=== PATIENT | male | born 1955 | race Caucasian/White ===

== ENCOUNTER 2020-09-29 16:30 | Outpatient (REF) | payer BC, SELFPAY ==
--- NOTE | 2020-09-29 16:58 | XR_ITS ---
EXAMINATION: XR SHOULDER, RIGHT CLINICAL INFORMATION: Unspecified disorder of synovium and tendon right shoulder COMPARISON: None TECHNIQUE: AP external rotation, Grashey, scapular Y, and axillary views of the right shoulder. FINDINGS: Bone alignment is normal. No fracture or dislocation is seen. There is arthritis at the acromioclavicular with joint space narrowing, osteophyte formation and subchondral cystic change. There is periarticular soft tissue calcification adjacent to the right acromioclavicular joint. It is uncertain whether this is related to previous trauma to the AC joint/dystrophic calcification or could represent evidence of an inflammatory AC joint arthritis. Clinical correlation is recommended. There is faint soft tissue calcification adjacent to the right greater trochanter questionable for calcific tendinitis or bursitis. 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 Clinical correlation recommended. Faint soft tissue calcification adjacent to the greater tuberosity suggestive of calcific tendinitis or bursitis.
== END 2020-09-29 16:31 | disposition home or self-care (01) ==
LOC: HO.XRAY 16:30
PROVIDERS: PCP Internal Medicine; Visit Provider Physician Assistant
DX: M67.911 Unspecified disorder of synovium and tendon, right shoulder (principal)
CPT/HCPCS: 73030

== ENCOUNTER → 2020-11-16 07:27 | Outpatient (BNVA) | payer BC, SELFPAY | PROVIDERS: PCP Internal Medicine; Visit Provider Physician Assistant ==

== ENCOUNTER → 2021-04-30 10:22 | Outpatient (BNVA) | payer SELFPAY | PROVIDERS: Visit Provider Internal Medicine | DX: Z02.79 Encounter for issue of other medical certificate (principal) ==

== ENCOUNTER 2021-09-06 09:34 | Outpatient (REF) | payer BC, SELFPAY ==
[2021-09-06 10:04] LABS: Hematocrit 47.1 % (42.0-52.0); Hemoglobin 15.2 g/dl (14.0-18.0); Mean Corpuscular HGB Conc 32.3 g/dl (31.0-36.0); Mean Corpuscular Hemoglobin 30.2 pg (27.0-33.0); Mean Corpuscular Volume 93.6 fL (80.0-98.0); Mean Platelet Volume 9.3 fL (9.4-12.4); Platelet Count 321 X10*3/uL (160-400); Red Blood Count 5.03 X10*6/uL (4.60-5.80); Red Cell Distribution Width 14.6 % (11.0-16.0); White Blood Count 8.9 X10*3/uL (4.8-10.8)
[2021-09-06 10:28] LABS: Alanine Aminotransferase 17 U/L (0-40); Albumin Level 4.5 g/dL (3.5-5.0); Alkaline Phosphatase 68 U/L (39-117); Anion Gap 11 (12-20); Aspartate Amino Transferase 18 U/L (5-37); Bilirubin Total 0.2 mg/dL (0.0-1.0); Blood Urea Nitrogen 17 mg/dL (9-16); Calcium 9.9 mg/dL (8.4-10.2); Carbon Dioxide 30 mmol/L (22-29); Chloride 107 mmol/L (96-108); Cholesterol 289 mg/dL; Estimated Glomerular Filt Rate > 60; Glucose Fasting 109 mg/dL (60-99); HDL Cholesterol 63 mg/dL; LDL Cholesterol Calculated 210 mg/dl; Potassium 4.7 mmol/L (3.3-5.1); Sodium 143 mmol/L (135-145); Total Protein 7.5 g/dL (6.5-8.0); Triglycerides 82 mg/dL
[2021-09-06 10:39] LABS: Estimated Average Glucose 117 mg/dL; Hemoglobin A1c % 5.7 %
[2021-09-06 11:19] LABS: Prostate Specific Antigen Scr 1.03 ng/mL (<0.05-4.0)
== END 2021-09-06 09:35 | disposition home or self-care (01) ==
LOC: HO.LAB 09:34
PROVIDERS: PCP Physician Assistant; Visit Provider Physician Assistant
DX: I10 Essential (primary) hypertension (principal); Z13.220 Encounter for screening for lipoid disorders; Z13.1 Encounter for screening for diabetes mellitus; Z12.5 Encounter for screening for malignant neoplasm of prostate
CPT/HCPCS: 36415; 80053; 80061; 83036; 84153; 85027

== ENCOUNTER 2021-09-06 10:10 | Outpatient (REF) | payer BC, SELFPAY ==
--- NOTE | ~2021-09-06 | CT_ITS ---
EXAMINATION: CT CHEST SCREENING CLINICAL INFORMATION: Smoker, [id number] history. COMPARISON: CT chest 08/07/2019. TECHNIQUE: Multidetector volumetric CT imaging of the chest is performed without contrast using low dose technique. Additional 2D coronal and sagittal reformatted images and axial 3D maximum intensity projection (MIP) images are generated on the CT workstation. This CT examination was performed using dose optimization techniques as appropriate, variously including the following: *Automated exposure control *Adjustment of mA and/or kV according to patient size (this includes techniques or standardized protocols for targeted exams where dose is matched to indication/reason for exam; i.e. extremities or head) *Use of iterative reconstruction technique DLP: 54 mGy-cm FINDINGS: LUNGS: There is 1 mm calcified granuloma left upper lobe axial image 63/6 with left apical pleural thickening. There is a 3 mm nodule left lower lobe lateral basal segment axial image 424/6, a 1 mm calcified granuloma left lower lobe axial image 454/6, a 2 mm nodule left lower lobe adjacent to major fissure axial image 378/6. Few additional subsegmental nodules in the left lower lobe. There are a few tiny subpleural nodules in the right lower lobe similar to previous study. A 1 mm calcified nodule right middle lobe axial image 441/6, 2 mm subpleural tiny nodule right lower lobe axial image 290/6 is stable. There are bilateral posterior basal segment atelectasis. No acute consolidation or mass seen. MEDIASTINUM: No hilar or mediastinal mass or lymph nodes. The central trachea and the bronchi are widely patent. The heart size and the great vessels are normal caliber. There is no pericardial effusion. There is minimal coronary artery calcification seen. The thyroid lobes are symmetrical and normal. PLEURA: There is no pleural effusion. No pleural mass or thickening. AXILLA: No lymphadenopathy. UPPER ABDOMEN: Visualized liver, spleen, pancreas and bilateral adrenal glands are unremarkable. OSSEOUS STRUCTURES: No aggressive lytic or sclerotic process seen. CT/CT lung screening IMPRESSION: Stable scattered pulmonary nodules, 4 mm or less. Stable calcified granulomas measuring 1 mm. No new pulmonary nodules, mass or consolidation. Minimal coronary artery calcifications. ASSESSMENT: Lung-RADS category 2: Benign RECOMMENDATION: Low-dose annual CT chest screening.
== END 2021-09-06 10:11 | disposition home or self-care (01) ==
LOC: HO.CT 10:10
PROVIDERS: PCP Physician Assistant; Visit Provider Physician Assistant Medical
DX: I10 Essential (primary) hypertension (principal); Z13.220 Encounter for screening for lipoid disorders; Z13.1 Encounter for screening for diabetes mellitus; Z12.5 Encounter for screening for malignant neoplasm of prostate; F17.200 Nicotine dependence, unspecified, uncomplicated
CPT/HCPCS: 71271

== ENCOUNTER 2022-11-16 08:36 | Outpatient (REF) | payer BC, SELFPAY ==
[2022-11-16 09:41] LABS: Hematocrit 46.8 % (42.0-52.0); Hemoglobin 15.2 g/dl (14.0-18.0); Mean Corpuscular HGB Conc 32.5 g/dl (31.0-36.0); Mean Corpuscular Hemoglobin 30.1 pg (27.0-33.0); Mean Corpuscular Volume 92.7 fL (80.0-98.0); Mean Platelet Volume 10.3 fL (9.4-12.4); Platelet Count 346 X10*3/uL (160-400); Red Blood Count 5.05 X10*6/uL (4.60-5.80); Red Cell Distribution Width 14.6 % (11.0-16.0); White Blood Count 9.3 X10*3/uL (4.8-10.8)
[2022-11-16 10:22] LABS: Alanine Aminotransferase 21 U/L (0-40); Albumin Level 4.4 g/dL (3.5-5.0); Alkaline Phosphatase 72 U/L (39-117); Anion Gap 12 (12-20); Aspartate Amino Transferase 23 U/L (5-37); Bilirubin Total 0.3 mg/dL (0.0-1.0); Blood Urea Nitrogen 19 mg/dL (9-16); Calcium 9.1 mg/dL (8.4-10.2); Carbon Dioxide 25 mmol/L (22-29); Chloride 108 mmol/L (96-108); Cholesterol 235 mg/dL; Estimated Glomerular Filt Rate > 60; Glucose Fasting 105 mg/dL (60-99); HDL Cholesterol 72 mg/dL; LDL Cholesterol Calculated 151 mg/dl; Potassium 4.8 mmol/L (3.3-5.1); Sodium 140 mmol/L (135-145); Triglycerides 61 mg/dL; Uric Acid 5.3 mg/dL (3.4-7.0)
[2022-11-16 10:40] LABS: TSH reflex Free T4 3.27 uIU/mL (0.32-4.0)
== END 2022-11-16 08:37 | disposition home or self-care (01) ==
LOC: HO.LAB 08:36
PROVIDERS: PCP Physician Assistant; Visit Provider Physician Assistant
DX: M1A.0720 Idiopathic chronic gout, left ankle and foot, without tophus (tophi) (principal); E78.2 Mixed hyperlipidemia
CPT/HCPCS: 36415; 80053; 80061; 84443; 84550; 85027

== ENCOUNTER → 2023-04-27 10:25 | Outpatient (BNVA) | payer SELFPAY | PROVIDERS: PCP Physician Assistant; Visit Provider Physician Assistant Medical | DX: Z02.79 Encounter for issue of other medical certificate (principal) ==

== ENCOUNTER 2023-08-31 15:57 | Outpatient (REF) | payer BC, SELFPAY | END 2023-08-31 15:58 | disposition home or self-care (01) | LOC: HO.CT 15:57 | PROVIDERS: Visit Provider Physician Assistant Medical | DX: Z13.89 Encounter for screening for other disorder (principal) ==

== ENCOUNTER 2023-10-13 09:29 | Outpatient (REF) | payer BC, SELFPAY ==
--- NOTE | ~2023-10-13 | CT_ITS ---
EXAMINATION: CT CHEST SCREENING CLINICAL INFORMATION: Current smoker with 50 pack year history. COMPARISON: 09/06/2021 and 08/07/2019 TECHNIQUE: Multidetector volumetric CT imaging of the chest is performed without contrast using low dose technique. Additional 2D coronal and sagittal reformatted images and axial 3D maximum intensity projection (MIP) images are generated on the CT workstation. This CT examination was performed using dose optimization techniques as appropriate, variously including the following: *Automated exposure control *Adjustment of mA and/or kV according to patient size (this includes techniques or standardized protocols for targeted exams where dose is matched to indication/reason for exam; i.e. extremities or head) *Use of iterative reconstruction technique DLP: 52 mGy-cm FINDINGS: PEDIATRIC PHYSICAL THERAPY ASSISTANT: Aortic calcifications. Clear lungs. LUNGS: Trachea and bronchi are patent. Mild left apical pleural thickening again identified. Mild centrilobular and paraseptal emphysema. Cystic changes right upper lobe. Minor dependent atelectasis. 3 mm LLL nodule is stable, 6:383. Unchanged 5 mm pleural-based RML nodule, 6:412. Scattered micronodules and granulomas. MEDIASTINUM: Unremarkable thyroid. No pathologic lymphadenopathy. Nonenlarged heart. Nonaneurysmal aorta with atherosclerotic calcifications. Nonenlarged pulmonary arteries. CORONARY ARTERY CALCIFICATION: None visualized on this study. PLEURA: There is no pleural effusion. No pleural mass or thickening. AXILLA: No lymphadenopathy. UPPER ABDOMEN: Unremarkable OSSEOUS STRUCTURES: Unremarkable. CT/CT lung screening IMPRESSION: Stable lung nodules. No new or enlarging pulmonary nodules. ASSESSMENT: Lung-RADS category 2: Benign RECOMMENDATION: Routine annual low-dose CT screening in 12 months.
== END 2023-10-13 09:30 | disposition home or self-care (01) ==
LOC: HO.CT 09:29
PROVIDERS: PCP Physician Assistant; Visit Provider Nurse Practitioner Family
DX: Z12.2 Encounter for screening for malignant neoplasm of respiratory organs (principal); F17.210 Nicotine dependence, cigarettes, uncomplicated
CPT/HCPCS: 71271

== ENCOUNTER 2025-03-11 12:23 | Outpatient (AMB) | payer BC, SELFPAY ==
--- NOTE | 2025-03-11 12:57 | AM.OFFWIN_ITS ---
Intake Vital Signs 03/11/25 12:58 Height 5 ft 11 in Weight 158 lb BMI 22.0 BP 112/60 Blood Pressure Location Lt brachial Position Sitting Pulse 78 Pulse Source Pulse Oximeter Temp 97.5 F Temp Source Oral Pulse Oximetry (%) 97 Oxygen Delivery Method Room Air Intake Visit Reasons: EP Dizzy when looking up Intake Note: presents with dizziness when sitting/standing and mild headache 5 days Patient Tobacco Use Status: Current everyday Tobacco user Allergies moderna Allergy (Severe, Uncoded 03/11/25 13:01) throat closing and hives Do you need a note to return to daycare/school/sports/work: No HPI HPI Comments History of Present Illness Details History of Present Illness - The patient is a 69-year-old male pres enting with dizziness. - He states that he has been experiencin g dizziness when he moves his head, particularly when he lifts his head. - The dizziness began last and is primarily triggered by head movements rather than positional changes. - He does not describe that the room is spinning but he feels dizzy and needs to grab onto something until it resolves in a few seconds. - He has no associated chest pain, SOB o r nausea when it occurs. - The patient denies any cold symptoms, ear pain, chest pain, or shortness of breath. - There have been no changes in medicati on, vitamins, or diet. - The dizziness started after swimming o n vacation, requiring stabilization upon waking. - The patient has not experienced syncop e or vision changes. - The patient has a history of carotid a rtery surgery in 2013, during which a minor stroke occurred. Physical Exam General: Cooperative, healthy appearing, comfortable, no acute distress and well developed Orientation: Patient oriented x3 Limitations: No limitations Head: Normal to inspection Ears: Hearing grossly normal bilaterally. Cerumen impaction noted bilaterally. TMs not visualized bilaterally. Nose: Normal external nose present Face and sinus: Normal facial exam Eyes: Appearance normal, both eyes and all related structures. No nystagmus noted. EOMI. PERRLA. Neck: Normal visual inspection and Yes full ROM. No carotid bruits noted. Respiratory: Normal respiratory effort and able to speak in complete sentences. Clear to auscultation bilaterally Cardiovascular: Regular rate and rhythm. Normal S1 and S2 Neuro: Patient oriented x3. CN 2-12 intact. Patient was informed and verbally consented to the use of an ambient scribe for clinic note documentation during this visit. [facility] Medical History (Updated 09/02/24 @ 14:28 by Belkys Finn PA-C) HLD (hyperlipidemia) Nicotine dependence, cigarettes, uncomplicated PVD (peripheral vascular disease) Glaucoma Surgical History H/O carotid endarterectomy Family History Father Hypertension Diabetes Mother Breast cancer Brother Myocardial infarction Daughter In good health Daughter In good health Social History (Updated 03/21/22 @ 12:20 by Donta Segundo PA-C) Household Members: Spouse Alcohol intake: never Patient Tobacco Use Status: Current everyday Tobacco user Cigarette Packs Per Day: 1 Cigarettes Per Day: 10.0 Current occupational status: employed Current occupation: Construction Cognitive needs: No Hearing needs: No Vision needs: Yes Review of Systems Const All systems reviewed & are unremarkable except as noted in HPI and below Physical Exam Vital Signs: Last Vital Signs Temp 97.5 F 03/11/25 12:58 Pulse 78 03/11/25 12:58 BP 112/60 03/11/25 12:58 Pulse Ox 97 03/11/25 12:58 Oxygen Delivery Method Room Air 03/11/25 12:58 BMI result Body Mass Index 22.0 Office Procedures Cerumen Removal From which ear canal was the cerumen removed: bilateral Removal: irrigation Notes: patient tolerated procedure well, no complications and ear canal clear 73606-Fca Irrigation/Lavage Assessment & Plan Assessment & Plan (1) Postural dizziness: Code(s): R42 - Dizziness and giddiness Plan Most likely cerumen impaction vs verigo vs Meniere's Plan - Recommend ear irrigation to remove impacted cerumen, which is likely contributing to dizziness. - Monitor symptoms post-irrigation to assess improvement in dizziness. - Patient tolerated the procedure well and felt much better - Advised to not use q-tips in the ears - can use OTC Debrox drops - follow up with PCP Orders: Orders AMB Cerumen Removal Today H61.23 - Impacted cerumen, bilateral Coding Level of Care Code Est Pt Level 3 (48861) Diagnoses Postural dizziness R42 CPT Codes Office Procedure - CPT: 84386-Dmx Irrigation/Lavage ([id number])
[2025-03-11 12:58] VITALS: BP 112/60; PULSE 78; TEMP 36.4; O2SAT 97; BMI 22.0
== END 2025-03-11 14:39 | disposition home or self-care (01) ==
PROVIDERS: PCP Physician Assistant; Visit Provider Physician Assistant Medical
DX: R42 Dizziness and giddiness (principal); H61.23 Impacted cerumen, bilateral

== ENCOUNTER → 2025-03-11 12:23 | Outpatient (BNVA) | payer BC, SELFPAY | PROVIDERS: PCP Physician Assistant; Visit Provider Physician Assistant Medical | DX: R42 Dizziness and giddiness (principal); H61.23 Impacted cerumen, bilateral | CPT/HCPCS: 69209 ==

== ENCOUNTER 2025-03-20 14:23 | Outpatient (AMB) | payer BC, SELFPAY ==
[2025-03-20 15:10] VITALS: BP 106/60; PULSE 67; TEMP 36.7; O2SAT 98; BMI 22.0
--- NOTE | 2025-03-20 15:10 | AM.OFFWIN_ITS ---
Intake Vital Signs 03/20/25 15:10 Height 5 ft 11 in Weight 158 lb BMI 22.0 BP 106/60 Blood Pressure Location Rt brachial Position Sitting Pulse 67 Pulse Source Pulse Oximeter Temp 98.0 F Temp Source Oral Pulse Oximetry (%) 98 Oxygen Delivery Method Room Air Intake Visit Reasons: EP still experiencing dizziness Intake Note: presents with unresolved diziness Patient Tobacco Use Status: Current everyday Tobacco user Allergies moderna Allergy (Severe, Uncoded 03/11/25 13:01) throat closing and hives Do you need a note to return to daycare/school/sports/work: No HPI HPI Comments History of Present Illness Details 69 y/o Male patient who presents to the walk in clinic with c/o Dizziness. He was recently seen here at the walk in clinic with similar concern. He had his Both Ears Irrigated due to Cerumen Impaction. Reports his symptoms did not resolve. Reports feeling Dizzy every-time he looks up to the ceiling. Denies nausea or vomiting. [facility] Medical History (Updated 03/20/25 @ 15:42 by Emily Tavares NP) Vertigo HLD (hyperlipidemia) Nicotine dependence, cigarettes, uncomplicated PVD (peripheral vascular disease) Glaucoma Surgical History H/O carotid endarterectomy Family History Father Hypertension Diabetes Mother Breast cancer Brother Myocardial infarction Daughter In good health Daughter In good health Social History (Updated 03/21/22 @ 12:20 by Donta Segundo PA-C) Household Members: Spouse Alcohol intake: never Patient Tobacco Use Status: Current everyday Tobacco user Cigarette Packs Per Day: 1 Cigarettes Per Day: 10.0 Current occupational status: employed Current occupation: Construction Cognitive needs: No Hearing needs: No Vision needs: Yes Review of Systems Const All systems reviewed & are unremarkable except as noted in HPI and below Physical Exam Vital Signs: Last Vital Signs Temp 98.0 F 03/20/25 15:10 Pulse 67 03/20/25 15:10 BP 106/60 03/20/25 15:10 Pulse Ox 98 03/20/25 15:10 Oxygen Delivery Method Room Air 03/20/25 15:10 BMI result Body Mass Index 22.0 Const General: no acute distress Nutritional Appearance: thin Orientation/consciousness: patient oriented x3 HEENT Head: Yes normocephalic Ears: external ears normal and TM abnormal with fluid behind the TM bilateral General nose exam: Normal external nose present Face and sinus: Yes sinuses nontender Mouth: moist mucous membranes Throat: Yes uvula midline Resp Effort & Inspection: normal respiratory effort Cardio Heart sounds: S1 normal heart sound present and S2 normal heart sound present Neuro General: patient oriented x3 Assessment & Plan Assessment & Plan (1) Vertigo: Code(s): R42 - Dizziness and giddiness Plan: Ordered Scopolamine Patch. Advised to f/u with PCP for pOssible Vestibular therapy. Medications: New scopolamine base 1 patch transdermal Q3D 10 ea 1RF R42 - Dizziness and giddiness Coding Level of Care Code Est Pt Level 4 (48144) Diagnoses Vertigo R42 Time Spent (min) 20
== END 2025-03-20 16:10 | disposition home or self-care (01) ==
PROVIDERS: PCP Physician Assistant; Visit Provider Nurse Practitioner Family
DX: R42 Dizziness and giddiness (principal)

== ENCOUNTER 2025-05-14 15:02 | Outpatient (AMB) | payer BC, SELFPAY ==
--- NOTE | 2025-05-14 15:15 | MHC.PC.OV ---
Vital Signs 05/14/25 15:16 Height 5 ft 11 in Weight 160 lb 2 oz BMI 22.3 BP 108/62 Blood Pressure Location Lt brachial Position Sitting Respiration 18 Pulse 67 Pulse Source Pulse Oximeter Temp 97.3 F Temp Source Temporal Artery Scan Pulse Oximetry (%) 93 Oxygen Delivery Method Room Air Intake Visit Reasons: dizzy Dyer And Washer Required: No Accompanied by: Self / Same As Patient Allergies moderna Allergy (Severe, Uncoded 05/14/25 15:57) throat closing and hives Medication List - Last Reconciled 05/14/25 by INES Rossi No Known Home Meds Tobacco use date assessed: 05/14/25 Fall risk assessment: No Falls in past year Last assessed Fall Risk: 05/14/25 Dental Screening Dental Screen Date: 05/14/25 Did you have a dental visit in the last 12 months?: Yes Did you have a dental problem in the last 6 months where you did not have access to dental care?: No Was dental information given to patient?: Patient has dentist HPI dizzy HPI Details The patient is a 69-year-old male presenting with dizziness and preventative care screenings. The patient experienced dizziness, which he managed by performing maneuvers for Benign Paroxysmal Positional Vertigo (BPPV) learned from online resources. He successfully alleviated his symptoms after several attempts, without requiring physical therapy intervention. 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 For preventative care, the patient has never had a prostate exam and expressed concern due to increased nocturnal urination, agreeing to a PSA test for prostate health screening. The patient also agreed to a referral for a colonoscopy, having never undergone the procedure before. [facility] Medical History Vertigo HLD (hyperlipidemia) Nicotine dependence, cigarettes, uncomplicated PVD (peripheral vascular disease) Glaucoma Surgical History H/O carotid endarterectomy Family History Father Hypertension Diabetes Mother Breast cancer Brother Myocardial infarction Daughter In good health Daughter In good health Social History Household Members: Spouse Alcohol intake: never Patient Tobacco Use Status: Current everyday Tobacco user Cigarette Packs Per Day: 1 Cigarettes Per Day: 10.0 Current occupational status: employed Current occupation: Construction Cognitive needs: No Hearing needs: No Vision needs: Yes Questionnaire PHQ-9 Over the last 2 weeks, how often have you been bothered by any of the following problems? 1. Little interest or pleasure in doing things: more than half the days 2. Feeling down, depressed, or hopeless: not at all 3. Trouble falling or staying asleep, or sleeping too much: not at all 4. Feeling tired or having little energy: not at all 5. Poor appetite or overeating: not at all 6. Feeling bad about yourself - or that you are a failure or have let yourself or your family down: not at all 7. Trouble concentrating on things, such as reading the newspaper or watching television: not at all 8. Moving or speaking so slowly that other people could have noticed. Or the opposite - being so fidgety or restless that you have been moving around a lot more than usual: not at all 9. Thoughts that you would be better off or of hurting yourself in some way: not at all Total score: 2 Source: Developed by Drs. Jorge Luis Matthews, Shell Plaza, Ha Callahan and colleagues, with an educational vielka from [employer] Thrive Questionnaire Date Thrive assessed: 05/14/25 I am a: Patient What is your living situation today?: I have a steady place to live Within the past 12 months, did the food you bought not last and you didn't have the money to get more?: Never true Within the past 12 months, did you worry whether your food would run out before you got money to buy more?: Never true Do you have trouble paying for medicines?: No Do you have trouble getting transportation to medical appointments?: No Do you have trouble paying your heating and electricity bill?: No Do you have trouble taking care of your child, family member or friend?: No Do you have trouble with day-to-day activities such as bathing, preparing meals, shopping, managing finances, etc.?: No Are you currently unemployed and looking for a job?: No Are you interested in more education?: No Please select the resources that you would like help with: None Currently or been in a relationship where the following occur: No concerns reported THRIVE Score: 0 AUDIT C Alcohol Use Questionnaire (AUDIT-C) 1. How often do you have a drink containing alcohol?: Never Total Score: 0 KAVYA-7 AMB Questionnaire KAVYA-7 Date KAVYA - 7 assessed: 05/14/25 Feeling nervous, anxious, or on edge: 0 = Not at all Not being able to stop or control worryin = Not at all Worrying too much about different things: 0 = Not at all Trouble relaxin = Not at all Being so restless that it is hard to sit still: 0 = Not at all Becoming easily annoyed or irritable: 0 = Not at all Feeling afraid as if something awful might happen: 0 = Not at all Total KAVYA-7 score (0-4 normal; 5-9 mild; 10-14 moderate; 15-21 severe): 0 Source: Developed by Drs. Jorge Luis Matthews, Shell Plaza, Ha Callahan and colleagues, with an educational vielka from [employer] Review of Systems Const Denies body aches, Denies chills, Denies fever(s), Denies headache(s) and Denies poor appetite Eyes Reports no additional complaints ENT Denies dysphagia, Denies dizziness, Denies headache(s) and Denies odynophagia Card Denies chest pain, Denies syncope, Denies edema, Denies irregular heart rhythm, Denies lightheadedness and Denies dyspnea Resp Denies cough and Denies dyspnea GI Denies abdominal pain, Denies constipation, Denies dysphagia, Denies diarrhea, Denies nausea, Denies odynophagia and Denies vomiting Reports no additional complaints Musc Reports no additional complaints and Denies abnormal gait Skin/Breast Reports system reviewed and no additional complaints, except as documented Neuro Denies abnormal gait, Denies dizziness, Denies syncope and Denies headache(s) Psych Reports no additional complaints Physical exam (Primary Care) Vital Signs: Last Vital Signs Temp 97.3 F 05/14/25 15:16 Pulse 67 05/14/25 15:16 Resp 18 05/14/25 15:16 BP 108/62 05/14/25 15:16 Pulse Ox 93 05/14/25 15:16 Oxygen Delivery Method Room Air 05/14/25 15:16 BMI result Body Mass Index 22.3 Tobacco/Smoking Status: Tobacco use Status Tobacco use date assessed 05/14/25 05/14/25 15:23 Patient Tobacco Use Status Current everyday Tobacco 05/14/25 15:23 PHQ-9: PHQ-9 Score PHQ-9: Total score 2 05/14/25 15:23 Thrive Assessment: Date of Thrive Assessment Date Thrive assessed 05/14/25 05/14/25 15:23 Currently or been in a relationship where the following occur: No concerns reported Const General: cooperative, healthy appearing, comfortable and no acute distress Orientation/consciousness: patient oriented x3 HENMT Head: Yes normocephalic Ears: TM's normal bilaterally General nose exam: Normal nasal mucous membranes and turbinates present Eyes General: appearance normal, both eyes and all related structures Conjunctivae: conjunctivae normal Neck Neck: Yes full ROM and Yes no lymphadenopathy Resp Effort & Inspection: normal respiratory effort Auscultation: clear to auscultation bilaterally, no crackles, no rales, no rhonchi and no wheezes Cardio Rate: regular rate Rhythm: regular rhythm Heart sounds: S1 normal heart sound present and S2 normal heart sound present GI Palpation (GI): Soft to palpation and nontender Auscultation: normal bowel sounds Skin General skin exam: no rashes or lesions noted Neuro General: patient oriented x3 Gait exam (Neuro): Normal gait present Extrem General: Yes normal to inspection, Yes full ROM and No edema Psych Affect: normal affect Attitude: cooperative Insight: Good insight present (Psych) Judgement: Good judgement present (Psych) Coding Level of Care Code Est Pt Level 3 (39756) Diagnoses Vertigo R42 Mixed hyperlipidemia E78.2 Hyperlipidemia type: mixed hyperlipidemia Colon cancer screening Z12.11 Time Spent (min) 36 Assessment & Plan Assessment & Plan (1) Vertigo: Code(s): R42 - Dizziness and giddiness Category: Medical (2) HLD (hyperlipidemia): Code(s): E78.5 - Hyperlipidemia, unspecified Category: Medical Qualifiers: Hyperlipidemia type: mixed hyperlipidemia Qualified Code(s): E78.2 - Mixed hyperlipidemia (3) Colon cancer screening: Comment: Index screening colonoscopy, no GI complaints, in no family history GI cancers Code(s): Z12.11 - Encounter for screening for malignant neoplasm of colon Category: Medical Plan Plan Patient was informed and verbally consented to the use of an ambient scribe for clinic note documentation during this visit. 1. Benign Paroxysmal Positional Vertigo (Bppv) The patient managed his BPPV symptoms using self-administered maneuvers learned online, which successfully alleviated his dizziness without the need for physical therapy. 2. Neck Pain The neck pain, attributed to prolonged overhead work, has resolved without further intervention. 3. Preventative Care: Prostate Cancer Screening The patient agreed to undergo a PSA test for prostate cancer screening due to increased nocturnal urination. 4. Preventative Care: Colon Cancer Screening A referral for a colonoscopy was made as the patient has never undergone this screening procedure. Orders: Orders UA CC w/rflx Micro + Cult Today E78.2 - Mixed hyperlipidemia, R42 - Dizziness and giddiness TSH reflex Free T4 Today E78.2 - Mixed hyperlipidemia, R42 - Dizziness and giddiness PSA,Total (Free>4and<10) Today E78.2 - Mixed hyperlipidemia, R42 - Dizziness and giddiness Complete Blood Count Auto Diff Today E78.2 - Mixed hyperlipidemia, R42 - Dizziness and giddiness Comprehensive [place]. Panel Fast Today E78.2 - Mixed hyperlipidemia, R42 - Dizziness and giddiness Lipid Panel Today E78.2 - Mixed hyperlipidemia, R42 - Dizziness and giddiness Vitamin D 25-OH Total Today E78.2 - Mixed hyperlipidemia, R42 - Dizziness and giddiness Referrals Gastroenterology Referral Z12.11 - Encounter for screening for malignant neoplasm of colon
[2025-05-14 15:16] VITALS: BP 108/62; PULSE 67; RESP 18; TEMP 36.3; O2SAT 93; BMI 22.3
== END 2025-05-14 16:17 | disposition home or self-care (01) ==
LOC: HO.HMCH 15:03
PROVIDERS: PCP Physician Assistant
DX: R42 Dizziness and giddiness (principal); E78.2 Mixed hyperlipidemia; Z12.11 Encounter for screening for malignant neoplasm of colon

== ENCOUNTER → 2025-06-12 07:56 | Outpatient (BNVA) | payer SELFPAY | PROVIDERS: PCP Physician Assistant; Visit Provider Physician Assistant Medical | DX: Z02.79 Encounter for issue of other medical certificate (principal) ==

== ENCOUNTER 2025-06-12 09:14 | Outpatient (REF) | payer BC, SELFPAY ==
[2025-06-12 09:38] LABS: MANUAL DIFF FLAG NO
[2025-06-12 10:14] LABS: Hematocrit 45.5 % (42.0-52.0); Hemoglobin 15.3 g/dl (14.0-18.0); Imm Gran Abs Auto 0.04 X10*3/uL (0.00-0.03); Imm Gran Pct Auto 0.4 % (0.0-0.4); Lymphocytes Absolute Auto 1.8 X10*3/uL (1.2-4.9); Mean Corpuscular HGB Conc 33.6 g/dl (31.0-36.0); Mean Corpuscular Hemoglobin 31.0 pg (27.0-33.0); Mean Corpuscular Volume 92.1 fL (80.0-98.0); NRBC Abs Auto 0.000 X10*3/uL (0.0-0.012); NRBC Pct Auto 0.0 /100WBC (0.0-0.2); Platelet Count 333 X10*3/uL (160-400); Red Blood Count 4.94 X10*6/uL (4.60-5.80); White Blood Count 10.3 X10*3/uL (4.8-10.8)
[2025-06-12 10:48] LABS: Appearance Urine Clear; Glucose Urine UA Negative (Negative); PH 5.5 (5.0-9.0); Specific Gravity - Urine 1.020 (1.005-1.025); UMIC TRIGGER UACC YES
[2025-06-12 10:53] LABS: Alanine Aminotransferase 16 U/L (0-40); Albumin Level 4.5 g/dL (3.5-5.0); Alkaline Phosphatase 72 U/L (39-117); Anion Gap 10 (12-20); Aspartate Amino Transferase 24 U/L (5-37); Blood Urea Nitrogen 17 mg/dL (9-16); Calcium 9.4 mg/dL (8.4-10.2); Carbon Dioxide 31 mmol/L (22-29); Chloride 107 mmol/L (96-108); Cholesterol 262 mg/dL (<200); Estimated Glomerular Filt Rate > 60; HDL Cholesterol 68 mg/dL (>40); Potassium 4.7 mmol/L (3.3-5.1); Sodium 143 mmol/L (135-145); Total Protein 7.3 g/dL (6.5-8.0); Triglycerides 66 mg/dL (<150)
[2025-06-12 11:04] LABS: PSA,Total (Free>4and<10) 0.67 ng/mL (0.00-4.00)
== END 2025-06-12 09:15 | disposition home or self-care (01) ==
LOC: HO.LAB 09:14
PROVIDERS: PCP Physician Assistant
DX: Z12.5 Encounter for screening for malignant neoplasm of prostate (principal); Z13.21 Encounter for screening for nutritional disorder; R42 Dizziness and giddiness; E78.2 Mixed hyperlipidemia
CPT/HCPCS: 36415; 80053; 80061; 81001; 82306; 84153; 84443; 85025

== ENCOUNTER 2025-08-06 10:58 | Outpatient (AMB) | payer BC, SELFPAY ==
--- NOTE | 2025-08-06 11:09 | A.OFFPC_ITS ---
Vital Signs 08/06/25 11:12 Height 5 ft 11 in Weight 164 lb 8 oz BMI 22.9 BP 122/68 Respiration 16 Pulse 69 Pulse Source Pulse Oximeter Temp 97.5 F Temp Source Temporal Artery Scan Pulse Oximetry (%) 94 Oxygen Delivery Method Room Air Intake Visit Reasons: Annual exam - see comments Child Adolescent Psychiatrist Required: No Accompanied by: Self / Same As Patient Allergies moderna Allergy (Severe, Uncoded 08/06/25 11:18) throat closing and hives Medication List - Last Reconciled 08/06/25 by Donta Segundo PA-C No Known Home Meds Tobacco use date assessed: 08/06/25 Fall risk assessment: No Falls in past year Last assessed Fall Risk: 08/06/25 Dental Screening Dental Screen Date: 08/06/25 Did you have a dental visit in the last 12 months?: Yes Did you have a dental problem in the last 6 months where you did not have access to dental care?: No Was dental information given to patient?: Patient has dentist HPI Annual exam - see comments HPI Details Patient is a 70 year male here today for annual physical.? Patient has a past medical history significant for tobacco use disorder, carotid stenosis status post endarterectomy, tendinopathy of the right shoulder, osteoarthritis of the knees. .. .. Hyperlipidemia: Most recent lipid panel showing very elevated total cholesterol and LDL. Has not been able to tolerate statins in the past though he is willing to try again to help reduce his cardiovascular risk vaccine: Up-to-date with tetanus vaccine, up-to-date with COVID vaccine, needs pneumonia vaccine ( declines today), Needs Shingles though is considering. .. Colonoscopy: Cologuard done in 2021, negative, repeat 3 years (2024) .. Long-time smoker: Still smoking 10 cigs per day. Unfortunately has not been able to continue to reduce his smoking. patient is followed by lung cancer screening program a and continues with annual CT chest screenings ? Laboratory Tests 09/06/21 11/16/22 06/12/25 09:56 08:47 09:37 RBC 4.94 Creatinine 0.93 Fasting Glucose 109 H Hemoglobin A1c % 5.7 Cholesterol 235 262 H LDL Cholesterol, C alc 151 181 H Total PSA 0.67 TSH 1.96 ? PFS Medical History (Updated 08/06/25 @ 11:42 by Donta Segundo PA-C) Vertigo HLD (hyperlipidemia) Nicotine dependence, cigarettes, uncomplicated PVD (peripheral vascular disease) Glaucoma Surgical History History of cataract surgery History of right-sided carotid endarterectomy (~2013) Family History Father Hypertension Diabetes Mother Breast cancer Brother Myocardial infarction Daughter In good health Daughter In good health Social History Household Members: Spouse Housing: House Alcohol intake: never Patient Tobacco Use Status: Current everyday Tobacco user Cigarette Packs Per Day: 1 Cigarettes Per Day: 10.0 e-Cigarette/Vaping Use: Never Used service: No Current occupational status: employed Current occupation: Construction Cognitive needs: No Hearing needs: No Vision needs: Yes (Reading glasses PRN) Questionnaire Thrive Questionnaire Date Thrive assessed: 05/14/25 I am a: Patient What is your living situation today?: I have a steady place to live Within the past 12 months, did the food you bought not last and you didn't have the money to get more?: Never true Within the past 12 months, did you worry whether your food would run out before you got money to buy more?: Never true Do you have trouble paying for medicines?: No Do you have trouble getting transportation to medical appointments?: No Do you have trouble paying your heating and electricity bill?: No Do you have trouble taking care of your child, family member or friend?: No Do you have trouble with day-to-day activities such as bathing, preparing meals, shopping, managing finances, etc.?: No Are you currently unemployed and looking for a job?: No Are you interested in more education?: No Please select the resources that you would like help with: None Currently or been in a relationship where the following occur: No concerns reported and I choose not to answer THRIVE Score: 0 KAVYA-7 AMB Questionnaire KAVYA-7 Date KAVYA - 7 assessed: 05/14/25 Source: Developed by Drs. Jorge Luis Matthews, Shell Plaza, Ha Callahan and colleagues, with an educational vielka from [employer]. Review of Systems Const Denies body aches, Denies chills, Denies excessive sweating, Denies fatigue, Denies fever(s) and Denies headache(s) Eyes Denies blurry vision ENT Denies dysphagia, Denies vertigo, Denies dizziness, Denies headache(s), Denies hearing loss and Denies tinnitus Card Denies chest pain, Denies chest pain with activity, Denies syncope, Denies irregular heart rhythm and Denies dyspnea Resp Denies chest congestion, Denies cough, Denies hemoptysis, Denies dyspnea and Denies wheezing GI Denies abdominal pain, Denies melena, Denies hematochezia, Denies coffee ground emesis, Denies dysphagia, Denies diarrhea, Denies nausea and Denies vomiting Denies difficulty urinating, Denies dysuria, Denies urinary frequency, Denies urinary hesitancy and Denies urinary urgency Musc Denies arthralgias, Denies limited range of motion, Denies muscle cramps and Denies muscle weakness Skin/Breast Denies rash and Denies skin ulcer Neuro Denies Abnormal speech present, Denies confusion, Denies vertigo, Denies dizziness, Denies syncope, Denies headache(s), Denies memory loss and Denies seizure-like activity Psych Denies anxiety, Denies confusion, Denies depression, Denies memory loss, Denies panic attacks and Denies paranoia Endo Denies excessive sweating, Denies fatigue, Denies flushing, Denies polydipsia and Denies polyuria Aller/Immun Denies wheezing Physical exam (Primary Care) Vital Signs: Last Vital Signs Temp 97.5 F 08/06/25 11:12 Pulse 69 08/06/25 11:12 Resp 16 08/06/25 11:12 BP 122/68 08/06/25 11:12 Pulse Ox 94 08/06/25 11:12 Oxygen Delivery Method Room Air 08/06/25 11:12 BMI result Body Mass Index 22.9 Tobacco/Smoking Status: Tobacco use Status Tobacco use date assessed 08/06/25 08/06/25 11:15 Patient Tobacco Use Status Current everyday Tobacco 08/06/25 11:15 e-Cigarette/Vaping Use Never Used 08/06/25 11:15 Are you ready to quit: Yes Tobacco cessation counseling provided: Yes Items discussed: Nicotine replacement Relapse Prevention: discussed the importance of a supportive environment, discussed negative mood or depression after quitting, weight gain after smoking is common and discussed dietary, exercise and/or lifestyle changes Number of minutes spent counselin CPT code: 28324 - 4-10 Minutes Thrive Assessment: Date of Thrive Assessment Date Thrive assessed 05/14/25 08/06/25 11:15 Currently or been in a relationship where the following occur: No concerns reported and I choose not to answer Const General: cooperative, comfortable, no acute distress, alert and awake; No confusion Orientation/consciousness: oriented to person, oriented to place, patient oriented x3 and No confusion HENMT Head: Yes normocephalic Ears: external ears normal and TM's normal bilaterally Face and sinus: No sinus tenderness Mouth: Normal oral and palatal mucosa present and tongue normal Teeth and gingiva: dentition normal and gingiva normal Throat: Yes posterior oropharynx normal, Yes tonsils normal and Yes uvula midline Eyes Conjunctivae: conjunctivae normal Sclerae: sclerae normal Pupils: Equal, round and reactive pupils present EOM: EOMs intact bilaterally Direct Ophthalmoscopy: No no photophobia Neck Neck: Yes no lymphadenopathy, No tender and Yes no JVD Thyroid: Thyroid normal Carotids: no bruits Chest Chest palpation & inspection: no tenderness Resp Effort & Inspection: normal respiratory effort, no audible wheezes, not labored and no stridor Auscultation: no crackles, no rales, no rhonchi and no wheezes Cardio Jugular venous distension: no JVD Rate: regular rate, not bradycardic and not tachycardic Rhythm: regular rhythm Bruits: no carotid bruits Peripheral pulses: Peripheral pulses 2+ throughout GI Inspection: Yes normal to inspection, No abdominal wall ecchymosis and No visible herniation Palpation (GI): Soft to palpation, nontender, no guarding, not rigid and No hepatosplenomegaly present Auscultation: normoactive bowel sounds General: Yes no CVA tenderness Back/Spine/Pelvis Back: no CVA tenderness and No back tenderness Cervical Spine: cervical ROM normal Thoracic/Lumbar Spine: thoracic and lumbar spine normal to inspection, straight leg raise negative bilaterally, No thoraco-lumbar ROM limited and No lumbar spin al tenderness Skin Lesions: no lesions Rashes: no rashes Wounds: no wounds Neuro General: oriented to person, oriented to place, patient oriented x3, CN's II-XI intact bilaterally and No confusion Cranial nerves: Yes Equal, round and reactive pupils present and Yes Normal accommodation reflex present Cognition (Neuro): normal cognition Speech: No Abnormal speech present Gait exam (Neuro): Normal gait present Motor exam (neuro): 5/5 motor strength present throughout Extrem Right upper extremity: full ROM; no cyanosis Left upper extremity: full ROM; no cyanosis Right lower extremity: no edema Left lower extremity: no edema Psych Appearance: grossly normal Mental Status: mental status grossly normal Affect: normal affect Attitude: cooperative Thought process: Normal thought process present Coding Level of Care Code Est Pt Prev Care >65y(25853) Diagnoses Annual physical exam Z00.00 Mixed hyperlipidemia E78.2 Hyperlipidemia type: mixed hyperlipidemia Nicotine dependence, cigarettes, uncomplicated F17.210 PVD (peripheral vascular disease) I73.9 Additional Codes Vital Signs *Quality* - CPT code: 27150 - 4-10 Minutes ([id number]) Assessment & Plan Assessment & Plan (1) Annual physical exam: Code(s): Z00.00 - Encounter for general adult medical examination without abnormal findings Category: Medical Plan: As per HPI (2) HLD (hyperlipidemia): Comment: (did not tolerate statin) Code(s): E78.5 - Hyperlipidemia, unspecified Category: Medical Qualifiers: Hyperlipidemia type: mixed hyperlipidemia Qualified Code(s): E78.2 - Mixed hyperlipidemia Plan: Patient's most recent fasting lipid panel showing elevated total cholesterol and LDL. He has not been able to tolerate statin he is now willing to restart low- dose statin to help reduce his cardiovascular risk as he has establish carotid stenosis and continues to smoke. Goal LDL to be preferably below 100 (3) Nicotine dependence, cigarettes, uncomplicated: Comment: (50PYH, currently 1/2ppd) Code(s): F17.210 - Nicotine dependence, cigarettes, uncomplicated Category: Medical Plan: To address tobacco use, nicotine replacement therapy with nicotine gum will be initiated. This will be sent to the patient's pharmacy. (4) PVD (peripheral vascular disease): Comment: hx carotid endartarectomy Code(s): I73.9 - Peripheral vascular disease, unspecified Category: Medical Plan: Had a history of a right carotid artery endarterectomy, continues to smoke. Cholesterol very high. He is willing to restart statin therapy to help reduce his cardiovascular risk. 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 Panel Fast Today E78.2 - Mixed hyperlipidemia Medications: New rosuvastatin 5 mg PO DAILY 30 tabs 3RF 30 days E78.2 - Mixed hyperlipidemia nicotine (polacrilex) 2 mg buccal Q2H PRN 110 ea 0RF nicotine cravings 15 days F17.200 - Nicotine dependence, unspecified, uncomplicated, F17.210 - Nicotine dependence, cigarettes, uncomplicated
[2025-08-06 11:12] VITALS: BP 122/68; PULSE 69; RESP 16; TEMP 36.4; O2SAT 94; BMI 22.9
== END 2025-08-06 11:42 | disposition home or self-care (01) ==
LOC: HO.HMCH 10:59
PROVIDERS: PCP Physician Assistant; Visit Provider Physician Assistant
DX: Z00.00 Encounter for general adult medical examination without abnormal findings (principal); E78.2 Mixed hyperlipidemia; F17.210 Nicotine dependence, cigarettes, uncomplicated; I73.9 Peripheral vascular disease, unspecified